=== PATIENT | male | born 1990 | race Caucasian/White ===

== ENCOUNTER 2019-12-04 22:53 | Emergency (ER) | payer OTHER ==
--- NOTE | 2019-12-04 23:16 | ER Document Report ---
ED Medical Screen (RME) - General Chief Complaint: Drug Abuse Stated Complaint: HEROIN WITHDRAWALS/HEADACHE/BODY PAIN Notes: Patient is a 29-year-old white male with a history of substance abuse who presents to the emergency department with a chief complaint of fear of withdrawal and wanting detox. The patient used to abuse the medication tablets Opana. He states he switched eventually from Opana to heroin. He states he has been in rehab programs in the past. He has had several episodes of remission but always seems to relapse. He states this time he has been relapsed for about 3 weeks. He last used yesterday. He is not currently experiencing any withdra wal symptoms but would like assistance. Denies any other complaints or concerns. I have treated and performed a rapid initial assessment of this patient. A comprehensive ED assessment and evaluation of the patient, analysis of test results and completion of medical decision making process will be conducted by additional ED providers. PHYSICAL EXAMINATION: GENERAL: Well-appearing, well-nourished and in no acute distress. A&Ox4. Answers questions appropriately. Physical Exam - Vital signs Vitals: Temp Pulse Resp BP Pulse Ox 99.0 F 65 18 144/88 H 100 12/04/19 23:08 12/04/19 23:08 12/04/19 23:08 12/04/19 23:08 12/04/19 23:08 Course - Vital Signs Vital signs: Temp Pulse Resp BP Pulse Ox 99.0 F 65 18 144/88 H 100 12/04/19 23:08 12/04/19 23:08 12/04/19 23:08 12/04/19 23:08 12/04/19 23:08
[2019-12-04 23:57] LABS: ABSOLUTE BASOPHILS # (AUTO) 0.1 10^3/uL (0.0-0.2); ABSOLUTE EOSINOPHILS # (AUTO) 0.3 10^3/uL (0.0-0.6); ABSOLUTE LYMPHOCYTES (AUTO) 3.5 10^3/uL (0.5-4.7); ABSOLUTE MONOCYTES (AUTO) 0.8 10^3/uL (0.1-1.4); ABSOLUTE NEUT (AUTO) 6.6 10^3/uL (1.7-8.2); BASOPHILS % (AUTO) 0.8 % (0-2); EOSINOPHILS % (AUTO) 2.4 % (0-6); HEMOGLOBIN 16.6 g/dL (13.5-17.0); LYMPHOCYTES % (AUTO) 30.9 % (13-45); MEAN CORPUSCULAR HEMOGLOBIN 31.9 pg (27.0-33.4); MEAN CORPUSCULAR VOLUME 94 fl (80-97); MONOCYTES % (AUTO) 7.3 % (3-13); PLATELET COUNT 205 10^3/uL (150-450); RED BLOOD COUNT 5.21 10^6/uL (4.35-5.55); RED CELL DISTRIBUTION WIDTH 12.8 % (11.5-14.0); SEGMENTED NEUTROPHILS % (AUTO) 58.6 % (42-78); TOTAL CELLS COUNTED % (AUTO) 100 %; WHITE BLOOD COUNT 11.2 10^3/uL (4.0-10.5)
[2019-12-05 00:03] LABS: APPEARANCE,URINE CLEAR; BILIRUBIN,URINE NEGATIVE (NEGATIVE); COLOR,URINE YELLOW; GLUCOSE, URINE NEGATIVE (NEGATIVE); KETONES,URINE NEGATIVE (NEGATIVE); PROTEIN,URINE NEGATIVE (NEGATIVE); URINE SPECIFIC GRAVITY 1.024
[2019-12-05 00:06] LABS: ALBUMIN 4.7 g/dL (3.5-5.0); ALKALINE PHOSPHATASE 74 U/L (38-126); ANION GAP 6 (5-19); ASPARTATE AMINO TRANSFERASE 25 U/L (17-59); BILIRUBIN,TOTAL 0.8 mg/dL (0.2-1.3); BLOOD UREA NITROGEN 15 mg/dL (7-20); CARBON DIOXIDE 29 mmol/L (22-30); CHLORIDE 102 mmol/L (98-107); GLUCOSE 98 mg/dL (75-110); POTASSIUM 4.2 mmol/L (3.6-5.0); TOTAL PROTEIN 7.6 g/dL (6.3-8.2)
[2019-12-05 00:11] LABS: URINE AMPHETAMINES SCREEN NEGATIVE; URINE BARBITURATES SCREEN NEGATIVE; URINE BENZODIAZEPINES SCREEN NEGATIVE; URINE COCAINE SCREEN NEGATIVE; URINE MARIJUANA (THC) SCREEN NEGATIVE; URINE METHADONE SCREEN NEGATIVE; URINE PHENCYCLIDINE SCREEN NEGATIVE
[2019-12-05 00:12] LABS: ACETAMINOPHEN < 10 ug/mL (10-30); ALCOHOL < 10 mg/dL (NONE DETECTED); SALICYLATE < 1.0 mg/dL (2.0-20.0)
--- NOTE | 2019-12-05 00:22 | EKG REPORT ---
SEVERITY:- BORDERLINE ECG - SINUS RHYTHM PROBABLE LEFT ATRIAL ABNORMALITY : Confirmed by: Damien Aragon 05-Dec-2019 00:21:13
[2019-12-05] MEDS ORDERED: CLONIDINE HCL 0.1 MG TABLET PO ONE (05:36)
[2019-12-05] MEDS ORDERED: ACETAMINOPHEN 325 MG TABLET PO ONE (05:36)
[2019-12-05] MEDS ORDERED: HYDROXYZINE PAMOATE 50 MG CAPSULE PO ONE (05:36)
--- NOTE | 2019-12-05 05:42 | ER Document Report ---
ED Substance Abuse / Acc. OD <BLANCA TAVARES - Last Filed: 12/05/19 12:49> - General Mode of Arrival: Ambulatory Information source: Patient - HPI Patient complains to provider of: Drug abuse, Drug withdrawal Onset: Other - States his last usage was December 02. He states he is not having body aches all over and nausea and vomiting Onset/Duration: Gradual Quality of pain: Achy Severity: Moderate Pain Level: 3 Overdose of: Other - States he has been using heroin off and on most of his life states he feels like he is withdrawing Associated Symptoms: Nausea/vomiting, Other Similar symptoms previously: Yes Recently seen / treated by doctor: No <MICHAEL MILLER - Last Filed: 12/05/19 20:14> - General Chief Complaint: Other Stated Complaint: HEROIN WITHDRAWALS/HEADACHE/BODY PAIN Time Seen by Provider: 12/05/19 05:27 Primary Care Provider: [facility] [Outside] - Follow up as needed Notes: 29-year-old male presented to ED for complaint of need for detox for heroin addiction. He states he has been to rehab multiple times for heroin addiction and has relapsed each time. He states this time he has been using the heroin for the last 3 weeks. He states his last dose was yesterday. He states he is experiencing symptoms of body aches all over nausea vomiting and would like assistance with withdrawal. (MICHAEL MILLER) - Related Data Allergies/Adverse Reactions: No Known Allergies Allergy (Unverified 12/04/19 23:15) Past Medical History - General Information source: Patient - Social History Smoking Status: Current Every Day Smoker Cigarette use (# per day): Yes - Pack per day Chew tobacco use (# tins/day): No Smoking Education Provided: Yes - 4 minutes Frequency of alcohol use: Social Drug Abuse: Heroin Lives with: Family Family History: Reviewed & Not Pertinent Patient has homicidal ideation: No - Past Medical History Cardiac Medical History: Reports: None Pulmonary Medical History: Reports: None EENT Medical History: Reports: None Neurological Medical History: Reports: None Endocrine Medical History: Reports: None Renal/ Medical History: Reports: None Malignancy Medical History: Reports None GI Medical History: Reports: None Musculoskeletal Medical History: Reports None Skin Medical History: Reports None Psychiatric Medical History: Reports: None Traumatic Medical History: Reports: None Infectious Medical History: Reports: None Surgical Hx: Negative Past Surgical History: Reports: None, Hx Tonsillectomy <MICHAEL MILLER - Last Filed: 12/05/19 20:14> Review of Systems - Review of Systems Constitutional: No symptoms reported EENT: No symptoms reported Cardiovascular: No symptoms reported Respiratory: No symptoms reported Gastrointestinal: Nausea, Vomiting Genitourinary: No symptoms reported Male Genitourinary: No symptoms reported Musculoskeletal: Muscle pain, Muscle stiffness Skin: No symptoms reported Hematologic/Lymphatic: No symptoms reported Neurological/Psychological: Anxiety. denies: Speech impairment, Numbness, Tremor -: Yes All other systems reviewed and negative <MICHAEL MILLER - Last Filed: 12/05/19 20:14> Physical Exam - Vital signs Interpretation: Normal - General General appearance: Appears well, Alert - HEENT Head: Normocephalic, Atraumatic Eyes: Normal Pupils: PERRL - Respiratory Respiratory status: No respiratory distress Chest status: Nontender Breath sounds: Normal Chest palpation: Normal - Cardiovascular Rhythm: Regular Heart sounds: Normal auscultation Murmur: No - Abdominal Inspection: Normal Distension: No distension Bowel sounds: Normal Tenderness: Nontender Organomegaly: No organomegaly - Back Back: Normal, Nontender - Extremities General upper extremity: Normal inspection, Nontender, Normal color, Normal ROM, Normal temperature General lower extremity: Normal inspection, Nontender, Normal color, Normal ROM, Normal temperature, Normal weight bearing. 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 Babinski reflex: Normal (flexor plantar) Sensory: Normal - Psychological Associated symptoms: Anxious - Skin Skin Temperature: Warm Skin Moisture: Dry Skin Color: Normal <MICHAEL MILLER - Last Filed: 12/05/19 20:14> - Vital signs Vitals: Temp Pulse Resp BP Pulse Ox 99.0 F 65 18 144/88 H 100 12/04/19 23:08 12/04/19 23:08 12/04/19 23:08 12/04/19 23:08 12/04/19 23:08 Course - Laboratory Result Diagrams: 12/04/19 23:37 12/04/19 23:37 <BLANCA TAVARES - Last Filed: 12/05/19 12:49> - Laboratory Result Diagrams: 12/04/19 23:37 12/04/19 23:37 <MICHAEL MILLER - Last Filed: 12/05/19 20:14> - Vital Signs Vital signs: Temp Pulse Resp BP Pulse Ox 98.2 F 77 16 127/73 H 99 12/05/19 13:17 12/05/19 13:17 12/05/19 13:17 12/05/19 13:17 12/05/19 13:17 - Laboratory Laboratory results interpreted by me: 12/04/19 12/04/19 12/04/19 23:37 23:37 23:37 WBC 11.2 H Sodium 136.8 L Urine Urobilinogen 2.0 H Salicylates < 1.0 L Acetaminophen < 10 L Discharge <BLANCA TAVARES - Last Filed: 12/05/19 12:49> <MICHAEL MILLER - Last Filed: 12/05/19 20:14> - Discharge Clinical Impression: Heroin abuse Condition: Stable Disposition: HOME, SELF-CARE Additional Instructions: Today you were seen in the ER for heroin abuse and detox. Unfortunately we do not provide detox services here, mental health will be placing a referral in the system for [facility]. Please return to the ER if you develop thoughts of hurting yourself or others OR if you develop uncontrollable vomiting, diarrhea, high fever or worsening symptoms. Referrals: [facility] [Outside] - Follow up as needed
--- NOTE | 2019-12-05 12:49 | ER Document Report ---
Doctor's Note Notes: 12/05/19 12:48 Pt. resting comfortable, did speak with Mental Health who will place detox referral at [facility]. Pt. states he thought the ER was a detox facility. Patient is non-toxic, no acute distress, has tolerated liquids. Will d/c.
[2019-12-05 13:18] VITALS: BP 127/73
--- NOTE | 2019-12-06 09:30 | PSYCHOLOGICAL NOTE ---
Psych Note - Psych Note Date seen by psych provider: 12/05/19 Time seen by psych provider: 12:19 - [id number] Psych Note: Presenting Problem: Patient is a 29 year old male who presented to the [facility] ED last evening via POV for opiate withdrawal. Medical documentation noted patient said he had been sober for 10 months then relapsed 3 weeks ago, has been using Oxymorphone and IV Heroin, used last night, has been to several treatment centers with history or relapse and he commented "I cannot get past the year nina." UDS was positive for Opiates. Patient identified he wanted "detox and to be clean." he reported withdrawal symptom of "legs hurting bad" and stated in the past withdrawal symptoms included severe leg and back pain and affecting mental state. Patient stated his last treatment program was in 2015 in [place]. He identified he called a couple places and mentioned [facility] but everything else was outpatient. Patient stated "I came here for inpatient detox, they told me they could do it but I knew you guys were not a detox facility so now I just want to be discharged my ride will be here at 1:00PM." He denied suicidal and homicidal ideation. He gave verbal consent to send voluntary referral packet to [facility] and was informed he'd be provided resources which included [facility] for assistance with other detox facility placement. Patient was alert and oriented to self, person, place, time and situation. Mood was euthymic with congruent affect. He denied current suicidal and homicidal ideation. Patient did not appear to be responding to internal stimuli as evidenced by fair eye contact and answering questions appropriately when addressed. Thought processes were linear and organized. Conversational speech was within normal limits for rate, tone and prosody. Intellectual abilities are estimated to be average. Insight, judgment and impulse control were fair as evidenced by understanding levels of care (being in an ED not detox, detox facility versus outpatient) and expressing his desire for detox. Clinical Presentation: Opioid Use (UDS positive for it) Desire for Detox Impression/Plan: Patient is cleared from acute psychiatric services. Patient desired opioid detox. He denied suicidal and homicidal ideation which were never presenting concerns. He gave verbal consent to fax voluntary referral to [facility]. Referral was faxed. Patient recommended and encouraged to contact [facility] at discharge for assistance with other detox facility placement. Patient provided with the substance abuse outpatient resource sheet which highlighted and documented [facility] for assistance with voluntary detox and treatment, highlighted and documented [facility] as local facility/full currently/faxed referral, and listed the other detox facilities. Also provided the outpatient MH resource sheet which highlighted [facility] for crisis/talk therapy/linkage and documented walk in times for [place]. Patient was provided his lab work and EKG in yellow folder and informed he would need those for detox placement. Note patient's concern shifted to ride availability at 1300 and needing to be discharged or else he would not have transportation. Consulted with Dr. Lopez regarding the management and care of patient. ED Physician in agreement with recommendations.
== END 2019-12-05 13:19 | disposition home or self-care (01) ==
LOC: ER 22:53
DX: F11.10 Opioid abuse, uncomplicated (principal); F17.210 Nicotine dependence, cigarettes, uncomplicated; R11.2 Nausea with vomiting, unspecified; F41.9 Anxiety disorder, unspecified; M79.10 Myalgia, unspecified site
CPT/HCPCS: 36415; 80053; 80307; 81001; 85025; 93005; 93010; 99285